=== PATIENT | female | born 1955 | race Caucasian/White ===

== ENCOUNTER → 2021-04-19 | Outpatient (CLI) | payer MEDICARE ==
[~2021-04-19] MED LIST: OMNICEF 300 MG300 MG PO
[2021-04-19 12:10] LABS: HEMOGLOBIN 15.1 gm/dl (12.3-15.3); RED BLOOD COUNT 5.28 M/UL (4.00-5.10); WHITE BLOOD COUNT 9.7 K/UL (4.5-11.0)
[2021-04-19 12:35] LABS: BUN/CREATININE RATIO 20 (0-10)
== END ==
LOC: LAB 10:53
PROVIDERS: Urology
DX: E11.9 Type 2 diabetes mellitus without complications (principal); C67.9 Malignant neoplasm of bladder, unspecified; R31.29 Other microscopic hematuria
CPT/HCPCS: 36415; 80053; 85027; 87086